=== PATIENT | male | born 1980 | race Caucasian/White ===

== ENCOUNTER → 2016-08-04 | Outpatient (CLI) | payer OTHER ==
[~2016-08-04] MED LIST: BPO TP; DEPAKOTE500 MG PO; DOC-Q-LACE100 MG PO; ECONAZOLE MC; FLOMAX 0.4 MG0.4 MG PO; KEFLEX500 MG PO; KEPPRA1000 MG PO; KLONOPIN TAB 00.5 MG PO; LEVAQUIN500 MG PO; MIRALAX17 GM PO; PRILOSEC20 MG PO; TAB-A-VITE1 EACH PO; TRILEPTAL300 MG PO
[2016-08-04 09:58] LABS: HEMOGLOBIN 15.7 gm/dl (14.0-17.5); RED BLOOD COUNT 5.13 M/UL (4.20-5.50); WHITE BLOOD COUNT 6.3 K/UL (4.5-11.0)
[2016-08-04 10:37] LABS: BUN/CREATININE RATIO 17 (0-10)
== END ==
LOC: LAB 08:48
PROVIDERS: Nurse Practitioner Primary Care
DX: G40.909 Epilepsy, unspecified, not intractable, without status epilepticus (principal); N39.0 Urinary tract infection, site not specified; Z79.899 Other long term (current) drug therapy
CPT/HCPCS: 36415; 80053; 80061; 80183; 81001; 84443; 85025; 87086

== ENCOUNTER 2017-01-12 15:42 | Emergency (ER) | payer OTHER ==
[2017-01-13 00:16] LABS: BUN/CREATININE RATIO 16 (0-10)
[2017-01-13 00:19] LABS: HEMOGLOBIN 16.4 gm/dl (14.0-17.5); RED BLOOD COUNT 5.23 M/UL (4.20-5.50); WHITE BLOOD COUNT 10.6 K/UL (4.5-11.0)
== END 2017-01-13 01:40 | disposition home or self-care (01) ==
LOC: ER1 15:42
PROVIDERS: Family Medicine
DX: G40.909 Epilepsy, unspecified, not intractable, without status epilepticus (principal); N36.8 Other specified disorders of urethra; N39.0 Urinary tract infection, site not specified; G80.9 Cerebral palsy, unspecified; Z88.0 Allergy status to penicillin; Z88.5 Allergy status to narcotic agent; Z79.899 Other long term (current) drug therapy
CPT/HCPCS: 36415; 51701; 80053; 80299; 81001; 85025; 87086; 99284

== ENCOUNTER 2020-12-21 17:21 | Emergency (ER) | payer OTHER ==
[~2020-12-21 17:21] MED LIST changes: +BACTRIM DS TAB1 EACH PO; +BACTROBAN OINT22 GM EXT; +CETAPHIL237 ML TP; +CITROMA296 ML PO; +CO Q-10100 MG PO; +DULCOLAX10 MG PR; +DULCOLAX5 MG PO; +ENULOSE10 GM/15 M PO; +FLEET ENEMA EX230 ML PR; +FLUOCINONIDE60 ML TP; +MACROBID 100 M100 MG PO; +MEDROL DOSEPAK 24 MG PO; +PIMECROLIMUS30 GM TP; +RETIN-A20 G1 TP; +THERAPEUTIC SH177 ML TP; +TRILEPTAL600 MG PO; +VISTARIL25 MG PO; +ZOFRAN ODT 4 MG4 MG SL; +ZYRTEC10 M3 PO
[2020-12-21 18:23] LABS: HEMOGLOBIN 16.4 gm/dl (14.0-17.5); RED BLOOD COUNT 5.06 M/UL (4.20-5.50); WHITE BLOOD COUNT 12.5 K/UL (4.5-11.0)
[2020-12-21 18:35] LABS: BORDETELLA PARAPERTUSSIS Not Detected (Not Detectd); BORDETELLA PERTUSSIS Not Detected (Not Detectd); CHLAMYDIA PNEUMONIAE Not Detected (Not Detectd); CORONAVIRUS HKU1 Not Detected (Not Detectd); CORONAVIRUS NL63 Not Detected (Not Detectd); CORONAVIRUS OC43 Not Detected (Not Detectd); CORONOAVIRUS 229E Not Detected (Not Detectd); HUMAN METAPNEUMOVIRUS Not Detected (Not Detectd); HUMAN RHINOVIRUS/ENTEROVIRUS Not Detected (Not Detectd); INFLUENZA A Not Detected (Not Detectd); INFLUENZA B Not Detected (Not Detectd); MYCOPLASMA PNEUMONIAE Not Detected (Not Detectd); PARAINFLUENZA VIRUS 1 Not Detected (Not Detectd); PARAINFLUENZA VIRUS 2 Not Detected (Not Detectd); PARAINFLUENZA VIRUS 3 Not Detected (Not Detectd); PARAINFLUENZA VIRUS 4 Not Detected (Not Detectd); RESPIRATORY SYNCYTIAL VIRUS Not Detected (Not Detectd)
[2020-12-21 19:45] LABS: SARS-CoV-2 NOT DETECTED (Not Detectd)
[2020-12-21 20:00] LABS: BUN/CREATININE RATIO 23 (0-10)
[2020-12-22] MEDS ORDERED: CHRONULAC20 GM/30 M GT (00:38)
== END 2020-12-22 00:45 | disposition home or self-care (01) ==
LOC: ER1 17:21
PROVIDERS: Preventive Medicine Occupational Medicine
DX: E86.0 Dehydration (principal); K59.00 Constipation, unspecified; R50.9 Fever, unspecified; Z20.822 Contact with and (suspected) exposure to COVID-19
CPT/HCPCS: 36600; 70450; 71045; 80053; 80307; 81001; 82009; 82140; 82550; 82553; 82803; 83605; 83690; 83874; 83880; 84484; 85025; 85652; 86140; 87040; 87086; 87633; 93005; 94664; 94760; 96374; 99285; J1956; Q9967

== ENCOUNTER → 2021-01-11 | Outpatient (CLI) | payer OTHER ==
[~2021-01-11] MED LIST changes: +CHRONULAC20 GM/30 M GT
== END ==
LOC: WCC 11:15
DX: L89.892 Pressure ulcer of other site, stage 2 (principal); N18.6 End stage renal disease; G40.89 Other seizures; F79 Unspecified intellectual disabilities; Z99.3 Dependence on wheelchair; Z88.0 Allergy status to penicillin; Z88.5 Allergy status to narcotic agent; Z79.899 Other long term (current) drug therapy

== ENCOUNTER → 2021-01-17 | Outpatient (CLI) | payer OTHER | LOC: WCC 10:17 | DX: L89.212 Pressure ulcer of right hip, stage 2 (principal); N18.6 End stage renal disease; G40.89 Other seizures; F79 Unspecified intellectual disabilities; Z88.0 Allergy status to penicillin; Z88.5 Allergy status to narcotic agent; Z88.8 Allergy status to other drugs, medicaments and biological substances ==

== ENCOUNTER → 2021-01-31 | Outpatient (CLI) | payer OTHER | LOC: WCC 10:41 | DX: L89.212 Pressure ulcer of right hip, stage 2 (principal); N18.6 End stage renal disease; F79 Unspecified intellectual disabilities; G40.89 Other seizures | CPT/HCPCS: G0463 ==

== ENCOUNTER → 2021-02-21 | Outpatient (CLI) | payer OTHER ==
[~2021-02-21] MED LIST changes: +BACLOFEN10 MG PO; +K-MG CITRATE 91 EACH PO; +KRISTALOSE10 GM PO; +NIZORAL 2% CREA15 GM TOP; +NIZORAL A-D125 ML TP; +THERA-GEL251 ML TP; +TRAZODONE HCL150 MG PO; +TYLENOL325 MG PO; +ZYRTEC10 MG PO
== END ==
LOC: WCC 08:00
DX: L89.212 Pressure ulcer of right hip, stage 2 (principal); N18.6 End stage renal disease; R56.9 Unspecified convulsions; F79 Unspecified intellectual disabilities
CPT/HCPCS: G0463

== ENCOUNTER → 2021-02-25 | Outpatient (CLI) | payer OTHER | LOC: WCC 07:26 | DX: L89.156 Pressure-induced deep tissue damage of sacral region (principal); L89.212 Pressure ulcer of right hip, stage 2; N18.6 End stage renal disease; G40.89 Other seizures; F79 Unspecified intellectual disabilities; G82.50 Quadriplegia, unspecified; Z79.899 Other long term (current) drug therapy | CPT/HCPCS: G0463 ==

== ENCOUNTER 2021-03-23 14:16 | Inpatient (IN) | payer OTHER ==
[~2021-03-23] VITALS: Ht 198.1 cm; Wt 66.2 kg
[2021-03-23 16:59] LABS: HEMOGLOBIN 14.2 gm/dl (14.0-17.5); RED BLOOD COUNT 4.48 M/UL (4.20-5.50); WHITE BLOOD COUNT 12.1 K/UL (4.5-11.0)
[2021-03-23 17:38] LABS: BUN/CREATININE RATIO 40 (0-10)
[2021-03-23 18:10] LABS: BORDETELLA PARAPERTUSSIS Not Detected (Not Detectd); BORDETELLA PERTUSSIS Not Detected (Not Detectd); CHLAMYDIA PNEUMONIAE Not Detected (Not Detectd); CORONAVIRUS HKU1 Not Detected (Not Detectd); CORONAVIRUS NL63 Not Detected (Not Detectd); CORONAVIRUS OC43 Not Detected (Not Detectd); CORONOAVIRUS 229E Not Detected (Not Detectd); HUMAN METAPNEUMOVIRUS Not Detected (Not Detectd); INFLUENZA A Not Detected (Not Detectd); INFLUENZA B Not Detected (Not Detectd); MYCOPLASMA PNEUMONIAE Not Detected (Not Detectd); PARAINFLUENZA VIRUS 1 Not Detected (Not Detectd); PARAINFLUENZA VIRUS 2 Not Detected (Not Detectd); PARAINFLUENZA VIRUS 3 Not Detected (Not Detectd); PARAINFLUENZA VIRUS 4 Not Detected (Not Detectd); RESPIRATORY SYNCYTIAL VIRUS Not Detected (Not Detectd)
[2021-03-23 19:44] LABS: HUMAN RHINOVIRUS/ENTEROVIRUS DETECTED (Not Detectd); SARS-CoV-2 NOT DETECTED (Not Detectd)
[2021-03-23] MEDS ORDERED: MIRALAX17 GM PO (22:31)
[2021-03-23] MEDS ORDERED: CALMOSEPTINE O3.5 GM TP (22:38)
[2021-03-23] MEDS ORDERED: ADULT GLYCERIN1 EACH PR (22:47)
[2021-03-24 06:00] LABS: HEMOGLOBIN 12.8 gm/dl (14.0-17.5); WHITE BLOOD COUNT 9.4 K/UL (4.5-11.0)
[2021-03-24 06:01] LABS: RED BLOOD COUNT 4.02 M/UL (4.20-5.50)
[2021-03-24 06:21] LABS: BUN/CREATININE RATIO 29 (0-10)
--- NOTE | 2021-03-25 05:05 | NUR ---
pt given maxipime at 0330 after new IV started
[2021-03-26] MEDS ORDERED: LEVOFLOXACIN750 MG PO ×2 (11:35→11:43)
--- NOTE | 2021-03-26 15:06 | NUR ---
HAS AN ORDER FOR DISCHARGE PENDING THE PT GETTING A RIDE BACK TO INDEPENDENT OPPORUNITIES. NURSE MADE MULTIPLE ATTEMPTS TO CONTACT [employer] WITH MESSAGES TO CALL BACK LEFT. UNDABLE TO DISCHARGE PATIENT, BUT WILL CONTINUE TO TRY.
[2021-03-28 06:48] LABS: HEMOGLOBIN 14.1 gm/dl (14.0-17.5); RED BLOOD COUNT 4.47 M/UL (4.20-5.50); WHITE BLOOD COUNT 9.2 K/UL (4.5-11.0)
[2021-03-28 07:07] LABS: BUN/CREATININE RATIO 30 (0-10)
[2021-03-29 11:20] LABS: BUN/CREATININE RATIO 35 (0-10)
[2021-03-30 08:04] LABS: HEMOGLOBIN 13.6 gm/dl (14.0-17.5); RED BLOOD COUNT 4.59 M/UL (4.20-5.50); WHITE BLOOD COUNT 11.5 K/UL (4.5-11.0)
[2021-03-30 08:26] LABS: BUN/CREATININE RATIO 30 (0-10)
== END 2021-03-30 19:15 | disposition home or self-care (01) | DRG 872 ==
LOC: ER1 14:16 → M/S 20:53 → CDU 20:53 → M/S 21:51
PROVIDERS: Emergency Medicine; Internal Medicine; Nurse Practitioner; ADMIT Internal Medicine
DX: A41.52 Sepsis due to Pseudomonas (principal); N30.00 Acute cystitis without hematuria; E87.1 Hypo-osmolality and hyponatremia; K56.49 Other impaction of intestine; A41.89 Other specified sepsis; G40.909 Epilepsy, unspecified, not intractable, without status epilepticus; I34.0 Nonrheumatic mitral (valve) insufficiency; Z96.0 Presence of urogenital implants; Z20.822 Contact with and (suspected) exposure to COVID-19; E87.5 Hyperkalemia; K59.00 Constipation, unspecified; F41.9 Anxiety disorder, unspecified; K21.9 Gastro-esophageal reflux disease without esophagitis; B97.89 Other viral agents as the cause of diseases classified elsewhere; J06.9 Acute upper respiratory infection, unspecified; L89.152 Pressure ulcer of sacral region, stage 2; G31.84 Mild cognitive impairment of uncertain or unknown etiology; F79 Unspecified intellectual disabilities; Z90.49 Acquired absence of other specified parts of digestive tract; Z98.890 Other specified postprocedural states; Z88.0 Allergy status to penicillin; Z88.5 Allergy status to narcotic agent; Z88.8 Allergy status to other drugs, medicaments and biological substances; Z99.3 Dependence on wheelchair; Z79.899 Other long term (current) drug therapy
CPT/HCPCS: 36415; 71045; 80048; 80053; 81001; 82550; 82553; 83605; 83690; 83735; 83874; 84484; 85025; 87040; 87077; 87086; 87186; 87633; 93005; 94664; 94760; 96374; 99284; A6212; J0692; J1650; J2060; J3480; J7030

== ENCOUNTER → 2021-04-05 | Outpatient (CLI) | payer OTHER ==
[~2021-04-05] MED LIST changes: +ADULT GLYCERIN1 EACH PR; +CALMOSEPTINE O3.5 GM TP; +LEVOFLOXACIN750 MG PO
== END ==
LOC: WCC 07:30
DX: L89.212 Pressure ulcer of right hip, stage 2 (principal); L89.156 Pressure-induced deep tissue damage of sacral region; L89.890 Pressure ulcer of other site, unstageable; N18.6 End stage renal disease; F79 Unspecified intellectual disabilities; G40.89 Other seizures; G82.50 Quadriplegia, unspecified; Z79.899 Other long term (current) drug therapy
CPT/HCPCS: G0463

== ENCOUNTER → 2021-05-13 | Outpatient (CLI) | payer OTHER | LOC: RAD 10:39 | DX: K59.09 Other constipation (principal) | CPT/HCPCS: 74018 ==

== ENCOUNTER → 2021-05-13 | Outpatient (CLI) | payer OTHER | LOC: WCC 08:06 | DX: L89.150 Pressure ulcer of sacral region, unstageable (principal); L89.212 Pressure ulcer of right hip, stage 2; N18.6 End stage renal disease; G40.89 Other seizures; F79 Unspecified intellectual disabilities; Z88.0 Allergy status to penicillin; Z88.8 Allergy status to other drugs, medicaments and biological substances; Z88.5 Allergy status to narcotic agent ==

== ENCOUNTER → 2021-05-26 | Outpatient (CLI) | payer OTHER | LOC: WCC 07:45 | DX: L89.212 Pressure ulcer of right hip, stage 2 (principal); L89.156 Pressure-induced deep tissue damage of sacral region; S71.102A Unspecified open wound, left thigh, initial encounter; N18.6 End stage renal disease; G40.89 Other seizures; F79 Unspecified intellectual disabilities; Z88.0 Allergy status to penicillin; Z88.5 Allergy status to narcotic agent; Z88.8 Allergy status to other drugs, medicaments and biological substances; X58.XXXA Exposure to other specified factors, initial encounter ==

== ENCOUNTER 2021-06-13 10:26 | Emergency (ER) | payer OTHER ==
[2021-06-13 11:18] LABS: HEMOGLOBIN 15.8 gm/dl (14.0-17.5); RED BLOOD COUNT 5.13 M/UL (4.20-5.50); WHITE BLOOD COUNT 14.9 K/UL (4.5-11.0)
[2021-06-13 11:43] LABS: BUN/CREATININE RATIO 19 (0-10)
[2021-06-13 19:22] LABS: HEMOGLOBIN 12.9 gm/dl (14.0-17.5); RED BLOOD COUNT 4.28 M/UL (4.20-5.50); WHITE BLOOD COUNT 9.4 K/UL (4.5-11.0)
[2021-06-13 19:40] LABS: BUN/CREATININE RATIO 23 (0-10)
== END 2021-06-13 20:51 | disposition home or self-care (01) ==
LOC: ER1 10:26
PROVIDERS: Nurse Practitioner; Physician Assistant
DX: R05.9 Cough, unspecified (principal); Z20.822 Contact with and (suspected) exposure to COVID-19; Z88.0 Allergy status to penicillin; Z88.5 Allergy status to narcotic agent; Z88.8 Allergy status to other drugs, medicaments and biological substances
CPT/HCPCS: 0240U; 71045; 80053; 81001; 85025; 87081; 87086; 87880; 93005; 99284; J7030

== ENCOUNTER 2021-06-15 18:33 | Emergency (ER) | payer OTHER ==
[2021-06-15 20:19] LABS: HEMOGLOBIN 13.5 gm/dl (14.0-17.5); RED BLOOD COUNT 4.46 M/UL (4.20-5.50); WHITE BLOOD COUNT 9.1 K/UL (4.5-11.0)
[2021-06-15 20:58] LABS: BUN/CREATININE RATIO 17 (0-10)
== END 2021-06-16 00:54 | disposition home or self-care (01) ==
LOC: ER1 18:33
PROVIDERS: Physician Assistant
DX: R13.10 Dysphagia, unspecified (principal)
CPT/HCPCS: 70360; 71045; 80053; 85025; 87081; 87880; 99284

== ENCOUNTER → 2021-06-21 | Outpatient (CLI) | payer OTHER | LOC: WCC 08:02 | DX: L89.153 Pressure ulcer of sacral region, stage 3 (principal); N18.6 End stage renal disease; G40.89 Other seizures; F79 Unspecified intellectual disabilities; Z88.0 Allergy status to penicillin; Z88.5 Allergy status to narcotic agent; Z79.899 Other long term (current) drug therapy ==

== ENCOUNTER → 2021-06-29 | Outpatient (CLI) | payer OTHER ==
[2021-06-29 10:10] LABS: HEMOGLOBIN 14.4 gm/dl (14.0-17.5); RED BLOOD COUNT 4.79 M/UL (4.20-5.50); WHITE BLOOD COUNT 12.4 K/UL (4.5-11.0)
[2021-06-29 10:59] LABS: BUN/CREATININE RATIO 17 (0-10)
[2021-06-30 08:15] LABS: VITAMIN D, 25-HYDROXY 39.7 ng/mL (30.0-100.0)
[2021-06-30 09:16] LABS: THYROXINE (T4) 4.3 ug/dL (4.5-12.0)
== END ==
LOC: LAB 09:04
PROVIDERS: Nurse Practitioner
DX: M62.50 Muscle wasting and atrophy, not elsewhere classified, unspecified site (principal); F99 Mental disorder, not otherwise specified; R63.4 Abnormal weight loss; R00.0 Tachycardia, unspecified; R50.9 Fever, unspecified
CPT/HCPCS: 36415; 80053; 80061; 84436; 84443; 84480; 85025

== ENCOUNTER → 2021-07-05 | Outpatient (CLI) | payer OTHER | LOC: WCC 07:35 | DX: L89.212 Pressure ulcer of right hip, stage 2 (principal); L89.153 Pressure ulcer of sacral region, stage 3; N18.6 End stage renal disease; F79 Unspecified intellectual disabilities | CPT/HCPCS: G0463 ==

== ENCOUNTER → 2021-07-21 | Outpatient (CLI) | payer OTHER | LOC: WCC 08:14 | DX: L89.153 Pressure ulcer of sacral region, stage 3 (principal); L89.212 Pressure ulcer of right hip, stage 2; N18.6 End stage renal disease; G40.89 Other seizures; F79 Unspecified intellectual disabilities; Z99.3 Dependence on wheelchair; Z88.0 Allergy status to penicillin; Z88.5 Allergy status to narcotic agent; Z79.899 Other long term (current) drug therapy ==

== ENCOUNTER → 2021-07-27 | Outpatient (CLI) | payer OTHER | LOC: WCC 08:31 | DX: L89.153 Pressure ulcer of sacral region, stage 3 (principal); L89.212 Pressure ulcer of right hip, stage 2; N18.6 End stage renal disease; G40.89 Other seizures; F79 Unspecified intellectual disabilities; Z99.3 Dependence on wheelchair; Z88.0 Allergy status to penicillin; Z88.5 Allergy status to narcotic agent; Z79.899 Other long term (current) drug therapy | CPT/HCPCS: G0463 ==

== ENCOUNTER 2021-08-15 14:09 | Emergency (ER) | payer OTHER ==
[2021-08-15 14:56] LABS: HEMOGLOBIN 15.4 gm/dl (14.0-17.5); RED BLOOD COUNT 5.01 M/UL (4.20-5.50); WHITE BLOOD COUNT 13.9 K/UL (4.5-11.0)
[2021-08-15 15:16] LABS: BUN/CREATININE RATIO 32 (0-10)
== END 2021-08-15 17:27 | disposition home or self-care (01) ==
LOC: ER1 14:09
PROVIDERS: Physician Assistant
DX: R11.2 Nausea with vomiting, unspecified (principal); Z20.822 Contact with and (suspected) exposure to COVID-19; Z88.0 Allergy status to penicillin; Z88.5 Allergy status to narcotic agent; Z91.018 Allergy to other foods
CPT/HCPCS: 0240U; 80053; 85025; 93005; 96374; 99284; J2405; J7030

== ENCOUNTER → 2021-08-22 | Outpatient (CLI) | payer OTHER | LOC: WCC 08:14 | DX: L89.153 Pressure ulcer of sacral region, stage 3 (principal); L89.212 Pressure ulcer of right hip, stage 2; N18.6 End stage renal disease; G40.89 Other seizures; F79 Unspecified intellectual disabilities; Z88.0 Allergy status to penicillin; Z88.5 Allergy status to narcotic agent; Z79.899 Other long term (current) drug therapy | CPT/HCPCS: G0463 ==

== ENCOUNTER 2021-11-03 15:24 | Inpatient (IN) | payer OTHER ==
[~2021-11-03] VITALS: Ht 172.7 cm; Wt 61.7 kg
[~2021-11-03 15:24] MED LIST changes: -ENULOSE10 GM/15 M PO; +FLUOCINONIDE60 ML TOP; -FLUOCINONIDE60 ML TP; -K-MG CITRATE 91 EACH PO; +KETOCONAZOLE120 ML TOP; +KETOCONAZOLE15 GM TOP; +LACTULOSE10 GM/15 M PO; +MAGNESIUM CITR296 ML PO; -NIZORAL 2% CREA15 GM TOP; -NIZORAL A-D125 ML TP; +TAB-A-VITE TA400 MC1 PO; -TAB-A-VITE1 EACH PO
[2021-11-03 16:39] LABS: HEMOGLOBIN 14.5 gm/dl (14.0-17.5); RED BLOOD COUNT 4.57 M/UL (4.20-5.50); WHITE BLOOD COUNT 23.1 K/UL (4.5-11.0)
[2021-11-03 17:07] LABS: BUN/CREATININE RATIO 31 (0-10)
[2021-11-03] MEDS ORDERED: CLONAZEPAM1 MG PO (18:26)
[2021-11-03] MEDS ORDERED: BACLOFEN10 MG PO (18:34)
[2021-11-03] MEDS ORDERED: FAMOTIDINE20 MG PO (18:35)
[2021-11-03] MEDS ORDERED: IBU800 MG PO (18:35)
[2021-11-03] MEDS ORDERED: MIRTAZAPINE15 MG PO (18:35)
[2021-11-03] MEDS ORDERED: PIMECROLIMUS30 GM TOP (18:36)
[2021-11-03] MEDS ORDERED: [UNRECOGNIZED DRUG - OTHER] TOP (18:37)
[2021-11-03] MEDS ORDERED: CALMOSEPTINE OI71 GM TOP (18:38)
[2021-11-03] MEDS ORDERED: [UNRECOGNIZED DRUG - SUPPLY] TOP (18:39)
[2021-11-03] MEDS ORDERED: [UNRECOGNIZED DRUG - OTHER] TOP (18:41)
[2021-11-03] MEDS ORDERED: TERA TOP (18:41)
[2021-11-04 06:46] LABS: HEMOGLOBIN 13.1 gm/dl (14.0-17.5); RED BLOOD COUNT 4.21 M/UL (4.20-5.50)
[2021-11-04 06:50] LABS: WHITE BLOOD COUNT 14.6 K/UL (4.5-11.0)
[2021-11-04 07:17] LABS: BUN/CREATININE RATIO 29 (0-10)
[2021-11-05 06:24] LABS: HEMOGLOBIN 13.7 gm/dl (14.0-17.5); RED BLOOD COUNT 4.35 M/UL (4.20-5.50); WHITE BLOOD COUNT 11.9 K/UL (4.5-11.0)
[2021-11-05 06:38] LABS: BUN/CREATININE RATIO 21 (0-10)
[2021-11-06 07:18] LABS: HEMOGLOBIN 13.7 gm/dl (14.0-17.5); RED BLOOD COUNT 4.45 M/UL (4.20-5.50); WHITE BLOOD COUNT 10.6 K/UL (4.5-11.0)
[2021-11-06 07:44] LABS: BUN/CREATININE RATIO 23 (0-10)
[2021-11-07 06:39] LABS: HEMOGLOBIN 13.9 gm/dl (14.0-17.5); RED BLOOD COUNT 4.41 M/UL (4.20-5.50)
[2021-11-07 07:01] LABS: BUN/CREATININE RATIO 25 (0-10)
[2021-11-07] MEDS ORDERED: LEVOFLOXACIN500 MG PO (09:07)
[2021-11-07] MEDS ORDERED: AMLODIPINE BESYL5 MG PO (09:07)
== END 2021-11-07 11:45 | disposition home or self-care (01) | DRG 871 ==
LOC: ER1 15:24 → CDU 17:55 → MED SURG 4 17:55
PROVIDERS: Family Medicine; Internal Medicine; Physician Assistant; ADMIT Internal Medicine Infectious Disease
DX: A41.9 Sepsis, unspecified organism (principal); J18.9 Pneumonia, unspecified organism; G40.909 Epilepsy, unspecified, not intractable, without status epilepticus; K59.09 Other constipation; R00.0 Tachycardia, unspecified; F41.9 Anxiety disorder, unspecified; G31.84 Mild cognitive impairment of uncertain or unknown etiology; Z96.0 Presence of urogenital implants; Z90.49 Acquired absence of other specified parts of digestive tract; Z98.890 Other specified postprocedural states; Z88.0 Allergy status to penicillin; Z88.8 Allergy status to other drugs, medicaments and biological substances; Z88.5 Allergy status to narcotic agent; Z91.011 Allergy to milk products; Z88.1 Allergy status to other antibiotic agents
CPT/HCPCS: ECHO; 0240U; 36415; 71045; 80048; 80053; 83605; 83735; 83880; 85025; 85027; 85652; 86140; 87040; 92526; 92610; 93306; 94640; 94664; 94760; 96374; 99284; J0692; J1650

== ENCOUNTER 2021-12-03 16:12 | Emergency (ER) | payer OTHER ==
[~2021-12-03 16:12] MED LIST changes: +AMLODIPINE BESYL5 MG PO; +CALMOSEPTINE OI71 GM TOP; +CLONAZEPAM1 MG PO; +FAMOTIDINE20 MG PO; +IBU800 MG PO; +LEVOFLOXACIN500 MG PO; +MIRTAZAPINE15 MG PO; +PIMECROLIMUS30 GM TOP; +TERA TOP; +[UNRECOGNIZED DRUG - OTHER] TOP; +[UNRECOGNIZED DRUG - OTHER] TOP; +[UNRECOGNIZED DRUG - SUPPLY] TOP
[2021-12-03 17:19] LABS: HEMOGLOBIN 16.2 gm/dl (14.0-17.5); RED BLOOD COUNT 5.06 M/UL (4.20-5.50); WHITE BLOOD COUNT 20.7 K/UL (4.5-11.0)
[2021-12-03 17:58] LABS: BUN/CREATININE RATIO 21 (0-10)
== END 2021-12-03 23:20 | disposition short-term general hospital (02) ==
LOC: ER1 16:12
PROVIDERS: Emergency Medicine
DX: G40.909 Epilepsy, unspecified, not intractable, without status epilepticus (principal); J18.9 Pneumonia, unspecified organism; Z20.822 Contact with and (suspected) exposure to COVID-19
CPT/HCPCS: 0240U; 70450; 71045; 80053; 80183; 81001; 82550; 82553; 83605; 84484; 85025; 87040; 96361; 96365; 96375; 99285; G0480; J1953; J2060; J2185

== ENCOUNTER → 2021-12-14 | Outpatient (CLI) | payer OTHER | LOC: RAD 11:08 | DX: J18.9 Pneumonia, unspecified organism (principal); Z00.00 Encounter for general adult medical examination without abnormal findings | CPT/HCPCS: 71045 ==

== ENCOUNTER 2022-01-19 13:04 | Emergency (ER) | payer OTHER ==
[2022-01-19 16:34] LABS: HEMOGLOBIN 13.8 gm/dl (14.0-17.5); RED BLOOD COUNT 4.34 M/UL (4.20-5.50); WHITE BLOOD COUNT 6.3 K/UL (4.5-11.0)
[2022-01-19 16:48] LABS: BUN/CREATININE RATIO 35 (0-10)
[2022-01-19] MEDS ORDERED: CITRATE OF MAG296 ML PO (18:22)
== END 2022-01-19 19:19 | disposition home or self-care (01) ==
LOC: ER1 13:04
PROVIDERS: Physician Assistant
DX: K59.00 Constipation, unspecified (principal); Z88.5 Allergy status to narcotic agent; Z88.0 Allergy status to penicillin; Z88.1 Allergy status to other antibiotic agents; Z88.8 Allergy status to other drugs, medicaments and biological substances
CPT/HCPCS: 74018; 80053; 83690; 85025; 99283